=== PATIENT | male | born 1990 | race Caucasian/White ===

== ENCOUNTER → 2017-05-30 | Outpatient (CLI) | payer OTHER ==
[~2017-05-30] MED LIST: MULT-224 PO
== END ==
LOC: STAR 14:15
PROVIDERS: ATTEND Specialist
DX: Z02.9 Encounter for administrative examinations, unspecified (principal)

== ENCOUNTER 2017-06-06 05:36 | Day surgery (SDC) | payer OTHER ==
[~2017-06-06] VITALS: Ht 172.7 cm; Wt 90.8 kg
[2017-06-06] MEDS ORDERED: LACTATED RINGERS 1,000 ML IV SCH (06:04)
[2017-06-06] MEDS ORDERED: BUPIVACAINE/PF 0.5% ONE (06:56)
[2017-06-06] MEDS ORDERED: MUPIROCIN OINT 2%, 22GM ONE (06:56)
[2017-06-06] MEDS ORDERED: EPINEPHRINE 1 MG/ML, 1ML ONE (06:56)
[2017-06-06] MEDS ORDERED: PHENYLEPHRINE NASAL 0.5%, 15ML SPRAY ONE (06:56)
[2017-06-06] MEDS ORDERED: MIDAZOLAM 1 MG/ML, 2ML ONE (07:11)
[2017-06-06] MEDS ORDERED: FENTANYL PF 100 MCG/2ML ONE ×3 (07:11→08:39)
[2017-06-06] MEDS ORDERED: SUCCINYLCHOLINE 20 MG/ML, 10ML ONE (07:15)
[2017-06-06] MEDS ORDERED: PROPOFOL 10 MG/ML, 20ML ONE ×2 (07:15→07:17)
[2017-06-06] MEDS ORDERED: CEFAZOLIN 1,000 MG ONE (07:38)
[2017-06-06] MEDS ORDERED: ONDANSETRON 2MG/ML, 2ML ONE (07:47)
[2017-06-06] MEDS ORDERED: DEXAMETHASONE 4 MG/ML, 1ML ONE ×2 (07:47)
[2017-06-06] MEDS ORDERED: EPINEPHRINE 1 MG/ML, 1ML INFIL ONE (07:53)
[2017-06-06] MEDS ORDERED: ACETAMINOPHEN 325 MG TABLET PO PRN (08:30)
[2017-06-06] MEDS ORDERED: PROMETHAZINE 25 MG/ML, 1ML IV PRN (08:30)
[2017-06-06] MEDS ORDERED: OXYcodone 5 MG/5 ML ORAL.SOL UDC PO PRN (08:30)
[2017-06-06] MEDS ORDERED: ACETAMINOPHEN 650 MG/20.3 ML UDC ONE (08:38)
[2017-06-06] MEDS ORDERED: OXYcodone 5 MG/5 ML ORAL.SOL UDC ONE (08:39)
[2017-06-06] MEDS: FENTANYL PF 100 MCG/2ML IV PRN ×3 (08:43→08:58)
== END 2017-06-06 10:30 ==
LOC: OUT 05:36
PROVIDERS: ATTEND Specialist
DX: J35.01 Chronic tonsillitis (principal); K21.9 Gastro-esophageal reflux disease without esophagitis; Z72.89 Other problems related to lifestyle
CPT/HCPCS: 42826; 88304; J0171; J0330; J0690; J1100; J2250; J2405; J2704; J3010; J3490; J7120